=== PATIENT | female | born 2005 | race Caucasian/White ===

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

== ENCOUNTER 2025-05-26 09:42 | Outpatient (CLI) | payer MEDICAID, SELFPAY | END 2025-05-26 09:43 | disposition home or self-care (01) | LOC: NFLDREF 05-28 04:33 | PROVIDERS: Visit Provider Physician Assistant | DX: N89.8 Other specified noninflammatory disorders of vagina (principal) | CPT/HCPCS: 87491; 87591 ==

== ENCOUNTER 2025-05-29 15:25 | Outpatient (CLI) | payer MEDICAID, SELFPAY | END 2025-05-29 15:26 | disposition home or self-care (01) | LOC: NFLDREF 15:27 | PROVIDERS: Visit Provider Physician Assistant | DX: R30.0 Dysuria (principal) | CPT/HCPCS: 87086 ==